=== PATIENT | female | born 1950 | race Caucasian/White ===

== ENCOUNTER 2018-08-26 12:38 | Emergency (ER) | payer OTHER ==
[~2018-08-26] VITALS: Ht 152.4 cm; Wt 86.2 kg
[2018-08-26] MEDS ORDERED: COZAAR50 MG (12:59)
[2018-08-26] MEDS ORDERED: SYNTHROID100 MCG (12:59)
== END 2018-08-26 20:10 | disposition home or self-care (01) ==
LOC: ER 12:38
DX: S83.8X1A Sprain of other specified parts of right knee, initial encounter (principal); X50.0XXA Overexertion from strenuous movement or load, initial encounter; Y93.89 Activity, other specified; Y92.89 Other specified places as the place of occurrence of the external cause; Y99.8 Other external cause status